=== PATIENT | male | born 1975 | race Caucasian/White ===

== ENCOUNTER 2016-07-18 12:10 | Emergency (ER) | payer MEDICAID, OTHER ==
[~2016-07-18] VITALS: Ht 188 cm; Wt 100.5 kg
[2016-07-18 12:16] VITALS: BP 146/91
[2016-07-18] MEDS ORDERED: CEFAZOLIN 1,000 MG IM ONE (12:30)
[2016-07-18] MEDS ORDERED: OXYcodone/APAP 5/325MG TABLET PO ONE (12:30)
[2016-07-18] MEDS ORDERED: DIPH,PERTUSS(ACELL),TET VAC/PF 0.5 ML IM-VACC ONE ×2 (12:30→13:51)
[2016-07-18] MEDS ORDERED: LIDOCAINE 1%-EPI 1:100K, 20ML SQ ONE (12:30)
[2016-07-18] MEDS ORDERED: LIDOCAINE 1%-EPI 1:100K, 20ML ONE (13:12)
[2016-07-18] MEDS ORDERED: LIDOCAINE 1%, 20ML ONE (13:51)
[2016-07-18] MEDS ORDERED: CEFAZOLIN 1,000 MG ONE (13:51)
[2016-07-18] MEDS ORDERED: OXYcodone/APAP 5/325MG TABLET ONE (13:51)
[2016-07-18] MEDS ORDERED: BACITRACIN ZINC OINT 500U/GM, 0.9 GM ONE (13:59)
== END 2016-07-18 14:24 | disposition home or self-care (01) ==
LOC: ED 13:06
DX: S81.012A Laceration without foreign body, left knee, initial encounter (principal); W23.0XXA Caught, crushed, jammed, or pinched between moving objects, initial encounter; Y93.89 Activity, other specified; Y92.099 Unspecified place in other non-institutional residence as the place of occurrence of the external cause; Y99.8 Other external cause status
CPT/HCPCS: 12002; 73564; 90471; 90715; 96372; 99284; J0690

== ENCOUNTER 2017-05-20 13:11 | Emergency (ER) | payer BC, MEDICAID ==
[~2017-05-20] VITALS: Ht 188 cm; Wt 100.6 kg
[2017-05-20 13:24] VITALS: BP 150/102
[2017-05-20] MEDS ORDERED: IBUPROFEN 200 MG TABLET ONE (13:53)
[2017-05-20] MEDS ORDERED: KETOROLAC 30 MG/1 ML IM ONE (14:00)
[2017-05-20] MEDS ORDERED: IBUPROFEN 200 MG TABLET PO ONE (14:30)
== END 2017-05-20 14:14 | disposition home or self-care (01) ==
LOC: ED 14:08
DX: G56.03 Carpal tunnel syndrome, bilateral upper limbs (principal)
CPT/HCPCS: 29260; 99283; J7512

== ENCOUNTER 2017-06-21 18:53 | Inpatient (IN) | payer BC ==
[~2017-06-21] VITALS: Ht 188 cm; Wt 87.1 kg
[2017-06-21] MEDS ORDERED: SODIUM CHLORIDE 0.9% 1,000ML IVBOLUS ONE ×2 (19:30→21:00)
[2017-06-21] MEDS ORDERED: FAMOTIDINE 20 MG/2 ML IVP ONE (19:30)
[2017-06-21] MEDS ORDERED: ONDANSETRON 2MG/ML, 2ML IVPush ONE (19:30)
[2017-06-21] MEDS ORDERED: SODIUM CHLORIDE FLUSH 10ML SYR IVF ONE (19:30)
[2017-06-21 19:39] LABS: MEAN CORPUSCULAR HEMOGLOBIN 30.1 pg (27.5-34.5); MEAN CORPUSCULAR HGB CONC 33.4 g/dL (33.2-36.2); MEAN PLATELET VOLUME 8.2 fL (7.4-10.4); PLATELET COUNT 258 x10^3/uL (130-400); RED BLOOD COUNT 5.18 x10^6/uL (4.38-5.82); RED CELL DISTRIBUTION WIDTH 13.3 % (9.4-14.8)
[2017-06-21 19:45] LABS: INTERNATIONAL NORMALIZED RATIO 1.02 (0.93-1.1); PROTHROMBIN TIME 10.6 Seconds (9.6-11.5)
[2017-06-21 19:48] LABS: ALBUMIN 3.8 g/dL (3.4-5.0); CALCIUM 9.1 mg/dL (8.5-10.1); CHLORIDE 102 mmol/L (98-107)
[2017-06-21 19:54] LABS: ALANINE AMINOTRANSFERASE 37 U/L (12-78); ALKALINE PHOSPHATASE 68 U/L (45-117); ANION GAP 5 mmol/L (5-15); BILIRUBIN,TOTAL 0.5 mg/dL (0.2-1.0); CREATININE 1.13 mg/dL (0.7-1.3); TOTAL PROTEIN 7.1 g/dL (6.4-8.2)
[2017-06-21 19:55] LABS: BASOPHILS # (AUTO) 0.03 x10^3/uL (0-0.1); BASOPHILS % (AUTO) 0 % (0-1); EOSINOPHILS # (AUTO) 0.11 x10^3/uL (0-0.4); EOSINOPHILS % (AUTO) 1 % (1-7); LYMPHOCYTES # (AUTO) 2.37 x10^3/uL (1-3.4); LYMPHOCYTES % (AUTO) 11 % (22-44); MD SCAN; MONOCYTES # (AUTO) 0.84 x10^3/uL (0.2-0.8); MONOCYTES % (AUTO) 4 % (2-9); NEUTROPHILS % (AUTO) 85 % (42-75)
[2017-06-21] MEDS ORDERED: LORazepam 2 MG/ML, 1ML IVPush STA ×2 (19:55→21:08)
[2017-06-21] MEDS ORDERED: LORazepam 2 MG/ML, 1ML ONE ×2 (20:02→21:09)
[2017-06-21] MEDS ORDERED: ONDANSETRON 2MG/ML, 2ML ONE (20:19)
[2017-06-21] MEDS ORDERED: FAMOTIDINE 20 MG/2 ML ONE (20:19)
[2017-06-21] MEDS ORDERED: OMNIPAQUE 350 MG/ML, 100ML BOTTLE ONE (20:28)
[2017-06-21] MEDS ORDERED: SODIUM CHLORIDE 0.9% 1,000 ML IV ONE (20:53)
[2017-06-21] MEDS ORDERED: CEFTRIAXONE PMX 1GM/50ML 50 ML ONE (21:00)
[2017-06-21] MEDS ORDERED: CEFTRIAXONE PMX 1GM/50ML 50 ML IVPB ONE (21:00)
[2017-06-21] MEDS ORDERED: METRONIDAZOLE PMX 500MG/100ML 100 ML ONE (21:00)
[2017-06-21] MEDS ORDERED: METRONIDAZOLE PMX 500MG/100ML 100 ML IVPB ONE (21:00)
[2017-06-21] MEDS ORDERED: QUET400T4 PO (21:22)
[2017-06-21] MEDS ORDERED: LORazepam 2 MG/ML, 1ML IVPush ONE (21:30)
[2017-06-21] MEDS ORDERED: OXYcodone IR 5MG TABLET PO PRN (22:00)
[2017-06-21] MEDS: QUETIAPINE 100MG TABLET PO SCH (22:00)
[2017-06-21] MEDS ORDERED: CEFTRIAXONE PMX 1GM/50ML 50 ML IV SCH (22:00)
[2017-06-21] MEDS ORDERED: morphine SULFATE 10 MG/ML, 1ML IVPush PRN (22:00)
[2017-06-21] MEDS ORDERED: ACETAMINOPHEN 325 MG TABLET PO PRN (22:00)
[2017-06-21] MEDS ORDERED: ENALAPRILAT 1.25 MG/ML, 2ML IVPush PRN (22:00)
[2017-06-21] MEDS ORDERED: hydrALAzine 20 MG/ML, 1ML IVPush PRN (22:00)
[2017-06-21] MEDS: METRONIDAZOLE PMX 500MG/100ML 100 ML IV SCH (22:11)
[2017-06-21 22:22] LABS: FREE T4 (FREE THYROXINE) 0.95 ng/dL (0.76-1.46); THYROID STIMULATING HORMONE 0.616 mIU/L (0.358-3.740)
[2017-06-22] MEDS: D5%-0.9% NACL+KCL 20MEQ 1,000 ML IV SCH ×3 (00:17→18:24)
[2017-06-22] MEDS: ALPRazolam 1MG TABLET PO PRN ×6 (00:18→23:30)
[2017-06-22] MEDS: DOCUSATE 100 MG CAPSULE PO PRN ×2 (05:07→22:31)
[2017-06-22] MEDS: POLYETHYLENE GLYCOL 17 GM PACKET PO PRN (05:08)
[2017-06-22 05:14] VITALS: BP 113/71
[2017-06-22] MEDS: METRONIDAZOLE PMX 500MG/100ML 100 ML IV SCH ×3 (05:53→22:31)
[2017-06-22 05:56] LABS: CALCIUM 7.8 mg/dL (8.5-10.1); CHLORIDE 108 mmol/L (98-107)
[2017-06-22 06:01] LABS: ALANINE AMINOTRANSFERASE 26 U/L (12-78); ALBUMIN 2.8 g/dL (3.4-5.0); ALKALINE PHOSPHATASE 54 U/L (45-117); ANION GAP 6 mmol/L (5-15); BILIRUBIN,TOTAL 0.3 mg/dL (0.2-1.0); CHOL/HDL RATIO 3.4; CHOLESTEROL, TOTAL 137 mg/dL (140-239); CREATININE 0.93 mg/dL (0.7-1.3); HDL CHOL % 29 % (26-37); HDL CHOLESTEROL (DIRECT) 40 mg/dL (40-60); LDL CHOLESTEROL,CALCULATED 78 mg/dL (54-169); TOTAL PROTEIN 5.4 g/dL (6.4-8.2); TRIGLYCERIDES 93 mg/dL (50-200); VLDL CHOLESTEROL 19 mg/dL (0-25)
[2017-06-22 06:19] LABS: BASOPHILS # (AUTO) 0.04 x10^3/uL (0-0.1); BASOPHILS % (AUTO) 0 % (0-1); EOSINOPHILS # (AUTO) 0.17 x10^3/uL (0-0.4); EOSINOPHILS % (AUTO) 1 % (1-7); LYMPHOCYTES # (AUTO) 3.73 x10^3/uL (1-3.4); LYMPHOCYTES % (AUTO) 25 % (22-44); MD NO; MEAN CORPUSCULAR HEMOGLOBIN 29.6 pg (27.5-34.5); MEAN CORPUSCULAR HGB CONC 33.1 g/dL (33.2-36.2); MEAN CORPUSCULAR VOLUME 89.4 fL (81-97); MEAN PLATELET VOLUME 8.7 fL (7.4-10.4); MONOCYTES # (AUTO) 1.21 x10^3/uL (0.2-0.8); MONOCYTES % (AUTO) 8 % (2-9); NEUTROPHILS # (AUTO) 9.82 x10^3/uL (1.8-6.8); NEUTROPHILS % (AUTO) 66 % (42-75); PLATELET COUNT 211 x10^3/uL (130-400); RED BLOOD COUNT 4.35 x10^6/uL (4.38-5.82)
[2017-06-22] MEDS ORDERED: ALPRazolam 1MG TABLET PO PRN (07:30)
[2017-06-22 09:05] LABS: HCT (SEDRATE) 38.9 % (39.2-51.8)
[2017-06-22 09:14] LABS: CLOSTRIDIUM DIFFICILE ANTIGEN NEGATIVE; CLOSTRIDIUM DIFFICILE TOXIN NEGATIVE (Negative)
[2017-06-22 09:20] VITALS: BP 141/75
[2017-06-22 11:07] LABS: MICROSCOPIC NOT IND
[2017-06-22 11:10] LABS: CULTURE INDICATED? NO
[2017-06-22 12:00] VITALS: BP 103/67
[2017-06-22 17:01] VITALS: BP 108/69
[2017-06-22 20:09] VITALS: BP 132/69
[2017-06-22] MEDS ORDERED: CEFTRIAXONE 1,000 MG in DEXTROSE 5% 50 ML IV SCH (22:00)
[2017-06-22] MEDS: QUETIAPINE 100MG TABLET PO SCH (22:32)
[2017-06-23 00:44] VITALS: BP 101/63
[2017-06-23] MEDS: ALPRazolam 1MG TABLET PO PRN ×4 (03:29→16:02)
[2017-06-23] MEDS: POLYETHYLENE GLYCOL 17 GM PACKET PO PRN (05:48)
[2017-06-23] MEDS: METRONIDAZOLE PMX 500MG/100ML 100 ML IV SCH ×2 (05:49→14:10)
[2017-06-23 06:13] LABS: ANION GAP 7 mmol/L (5-15); CALCIUM 7.9 mg/dL (8.5-10.1); CHLORIDE 108 mmol/L (98-107)
[2017-06-23 06:15] LABS: BASOPHILS # (AUTO) 0.02 x10^3/uL (0-0.1); BASOPHILS % (AUTO) 0 % (0-1); CREATININE 0.89 mg/dL (0.7-1.3); EOSINOPHILS # (AUTO) 0.15 x10^3/uL (0-0.4); EOSINOPHILS % (AUTO) 1 % (1-7); LYMPHOCYTES # (AUTO) 3.17 x10^3/uL (1-3.4); LYMPHOCYTES % (AUTO) 27 % (22-44); MD NO; MEAN CORPUSCULAR HEMOGLOBIN 30.5 pg (27.5-34.5); MEAN CORPUSCULAR HGB CONC 33.9 g/dL (33.2-36.2); MEAN CORPUSCULAR VOLUME 89.9 fL (81-97); MEAN PLATELET VOLUME 8.4 fL (7.4-10.4); MONOCYTES # (AUTO) 0.87 x10^3/uL (0.2-0.8); MONOCYTES % (AUTO) 7 % (2-9); NEUTROPHILS # (AUTO) 7.78 x10^3/uL (1.8-6.8); NEUTROPHILS % (AUTO) 65 % (42-75); PLATELET COUNT 208 x10^3/uL (130-400); RED BLOOD COUNT 4.18 x10^6/uL (4.38-5.82); RED CELL DISTRIBUTION WIDTH 13.1 % (9.4-14.8)
[2017-06-23 09:44] VITALS: BP 107/68
[2017-06-23 16:04] VITALS: BP 96/59
[2017-06-23] MEDS ORDERED: POLY17PO5 PO (16:41)
[2017-06-23] MEDS ORDERED: METR500T8 PO (16:41)
[2017-06-23] MEDS ORDERED: DOCU-131 PO (16:41)
[2017-06-23] MEDS ORDERED: ACET325T14 PO (16:41)
[2017-06-23] MEDS ORDERED: CIPR500T3 PO (16:41)
[2017-06-23] MEDS ORDERED: LACT1CAP24 PO (16:42)
== END 2017-06-23 17:40 | disposition home or self-care (01) | DRG 872 ==
LOC: ED 20:58 → EDIP 21:00 → 4NOR 22:33
PROVIDERS: ADMIT Internal Medicine; ATTEND Internal Medicine
DX: A41.9 Sepsis, unspecified organism (principal); A09 Infectious gastroenteritis and colitis, unspecified; E86.0 Dehydration; F12.10 Cannabis abuse, uncomplicated; F17.210 Nicotine dependence, cigarettes, uncomplicated; K59.00 Constipation, unspecified; G56.00 Carpal tunnel syndrome, unspecified upper limb
CPT/HCPCS: 36415; 74177; 80048; 80053; 80061; 81003; 83036; 83605; 83690; 83735; 84100; 84439; 84443; 85014; 85018; 85025; 85610; 85651; 85730; 86140; 86850; 86900; 87040; 87046; 87324; 87427; 89055; 96361; 96365; 96368; 96375; 96376; J0696; J2405; Q9967; J2060; J3480; J7030; S0028

== ENCOUNTER 2018-12-06 10:18 | Emergency (ER) | payer BC, MEDICAID ==
[~2018-12-06] VITALS: Ht 185.4 cm; Wt 94.2 kg
[~2018-12-06 10:18] MED LIST: ACET325T14 PO; CIPR500T3 PO; DOCU-131 PO; LACT1CAP24 PO; METR-90 PO; POLY17PO5 PO; QUET400T4 PO
[2018-12-06 10:27] VITALS: BP 117/92
--- NOTE | 2018-12-06 10:58 | NUR ---
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
--- NOTE | 2018-12-06 11:20 | NUR ---
PT WITH C/O ABD PAIN, EPIGASTRIC DESCRIBED BY PATIENT. PT WITH HX OF DIVERTICULITIS/COLITITS.
[2018-12-06] MEDS ORDERED: SODIUM CHLORIDE FLUSH 10ML SYR IVF ONE (11:30)
[2018-12-06] MEDS ORDERED: MAALOX/HYOSCYAMINE/LIDOCAINE 45 ML BTL PO ONE (11:30)
[2018-12-06] MEDS ORDERED: FAMOTIDINE 20 MG/2 ML IVPush ONE (11:30)
[2018-12-06] MEDS ORDERED: SODIUM CHLORIDE 0.9% 1,000ML IVBOLUS ONE (11:30)
[2018-12-06] MEDS ORDERED: HYDROmorphone 2 MG/ML, 1ML IVPush PRN (11:30)
[2018-12-06] MEDS ORDERED: ONDANSETRON 2MG/ML, 2ML IVPush ONE (11:30)
--- NOTE | 2018-12-06 11:41 | NUR ---
PIV INITIATED, LABS DRAWN AND SENT. PT MEDICATED PER MAR
[2018-12-06 11:54] LABS: CHLORIDE 106 mmol/L (98-107)
[2018-12-06 11:59] LABS: BASOPHILS # (AUTO) 0.02 x10^3/uL (0-0.1); BASOPHILS % (AUTO) 0 % (0-1); EOSINOPHILS # (AUTO) 0.06 x10^3/uL (0-0.4); EOSINOPHILS % (AUTO) 1 % (1-7); LYMPHOCYTES # (AUTO) 2.51 x10^3/uL (1-3.4); LYMPHOCYTES % (AUTO) 31 % (22-44); MD NO; MEAN CORPUSCULAR HEMOGLOBIN 30.8 pg (27.5-34.5); MEAN CORPUSCULAR HGB CONC 34.8 g/dL (33.2-36.2); MEAN CORPUSCULAR VOLUME 88.8 fL (81-97); MEAN PLATELET VOLUME 8.4 fL (7.4-10.4); MONOCYTES # (AUTO) 0.61 x10^3/uL (0.2-0.8); MONOCYTES % (AUTO) 7 % (2-9); NEUTROPHILS # (AUTO) 5.05 x10^3/uL (1.8-6.8); NEUTROPHILS % (AUTO) 61 % (42-75); PLATELET COUNT 238 x10^3/uL (130-400); RED BLOOD COUNT 5.77 x10^6/uL (4.38-5.82); RED CELL DISTRIBUTION WIDTH 13.7 % (9.4-14.8)
[2018-12-06 12:00] LABS: ALANINE AMINOTRANSFERASE 35 U/L (12-78); ALBUMIN 4.4 g/dL (3.4-5.0); ALKALINE PHOSPHATASE 77 U/L (45-117); ANION GAP 5 mmol/L (5-15); BILIRUBIN,TOTAL 0.4 mg/dL (0.2-1.0); CREATININE 0.96 mg/dL (0.7-1.3); TOTAL PROTEIN 7.7 g/dL (6.4-8.2)
--- NOTE | 2018-12-06 12:28 | NUR ---
PT TO CT
[2018-12-06] MEDS ORDERED: OMNIPAQUE 350 MG/ML, 100ML BOTTLE ONE (12:42)
--- NOTE | 2018-12-06 13:20 | NUR ---
ERMD IN TO UPDATE PT, PT TO D/C HOME
--- NOTE | 2018-12-06 13:45 | NUR ---
Patient/Caregiver given discharge instructions and they have confirmed that they understand the instructions. Patient ambulatory with steady gait.
[2018-12-11] MEDS ORDERED: AMIT50TA PO (09:40)
[2018-12-11] MEDS ORDERED: SUCR1TAB PO (09:40)
[2018-12-11] MEDS ORDERED: OMEP20TA62 PO (09:40)
== END 2018-12-06 14:24 | disposition home or self-care (01) ==
LOC: ED 12:07
DX: K29.00 Acute gastritis without bleeding (principal); R10.84 Generalized abdominal pain
CPT/HCPCS: 36415; 74177; 80053; 83605; 83690; 85025; 96361; 96374; 96375; 99284; J1170; J2405; J3490; J7030; Q9967

== ENCOUNTER 2019-05-20 10:46 | Emergency (ER) | payer MEDICAID ==
[~2019-05-20] VITALS: Ht 185.4 cm; Wt 100.5 kg
[~2019-05-20 10:46] MED LIST changes: +AMIT50TA PO; +OMEP20TA62 PO; +SUCR1TAB PO
--- NOTE | 2019-05-20 11:36 | NUR ---
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
[2019-05-20 11:43] LABS: BASOPHILS # (AUTO) 0.04 x10^3/uL (0-0.1); BASOPHILS % (AUTO) 1 % (0-1); EOSINOPHILS # (AUTO) 0.07 x10^3/uL (0-0.4); EOSINOPHILS % (AUTO) 1 % (1-7); LYMPHOCYTES # (AUTO) 2.86 x10^3/uL (1-3.4); LYMPHOCYTES % (AUTO) 36 % (22-44); MD NO; MEAN CORPUSCULAR HEMOGLOBIN 29.7 pg (27.5-34.5); MEAN CORPUSCULAR HGB CONC 33.5 g/dL (33.2-36.2); MEAN CORPUSCULAR VOLUME 88.7 fL (81-97); MEAN PLATELET VOLUME 8.2 fL (7.4-10.4); MONOCYTES # (AUTO) 0.67 x10^3/uL (0.2-0.8); MONOCYTES % (AUTO) 9 % (2-9); NEUTROPHILS # (AUTO) 4.26 x10^3/uL (1.8-6.8); NEUTROPHILS % (AUTO) 54 % (42-75); PLATELET COUNT 226 x10^3/uL (130-400); RED BLOOD COUNT 5.44 x10^6/uL (4.38-5.82); RED CELL DISTRIBUTION WIDTH 13.4 % (9.4-14.8)
[2019-05-20 11:54] LABS: ALBUMIN 4.2 g/dL (3.4-5.0); ANION GAP 5 mmol/L (5-15); CALCIUM 8.8 mg/dL (8.5-10.1); CHLORIDE 104 mmol/L (98-107); CREATININE 1.14 mg/dL (0.7-1.3)
--- NOTE | 2019-05-20 11:59 | NUR ---
BREAK RN: PT CHANGED INTO GOWN, UPRIGHT ON GURNEY AWAKE & CALM, RESPONDS APPROP TO STAFF, COMFORT MEASURES PROVIDED, MOM AT BS, CALL LIGHT WITHIN REACH.
[2019-05-20] MEDS ORDERED: SODIUM CHLORIDE 0.9% 1,000 ML IV ONE (12:15)
[2019-05-20] MEDS ORDERED: HYDROmorphone 1 MG/ML, 1ML INJ ONE ×2 (12:29→13:49)
[2019-05-20] MEDS ORDERED: ONDANSETRON 2MG/ML, 2ML ONE (12:30)
[2019-05-20] MEDS ORDERED: ONDANSETRON 2MG/ML, 2ML IVPush ONE (12:30)
[2019-05-20] MEDS ORDERED: SODIUM CHLORIDE FLUSH 10ML SYR IVF ONE (12:30)
[2019-05-20] MEDS ORDERED: SODIUM CHLORIDE 0.9% 1,000ML IVBOLUS ONE (12:30)
[2019-05-20] MEDS: HYDROmorphone 2 MG/ML, 1ML IVPush PRN ×2 (12:41→13:52)
--- NOTE | 2019-05-20 12:47 | NUR ---
pt medicated per emar. pt tolerated well. ns infusing at this time.
--- NOTE | 2019-05-20 12:53 | NUR ---
ua sent at this time.
--- NOTE | 2019-05-20 13:08 | NUR ---
pt in ct at this time.
[2019-05-20 13:10] LABS: MICROSCOPIC NOT IND
[2019-05-20 13:15] LABS: CULTURE INDICATED? NO
[2019-05-20] MEDS ORDERED: OMNIPAQUE 350 MG/ML, 100ML BOTTLE ONE (13:15)
[2019-05-20 13:52] VITALS: BP 123/88
--- NOTE | 2019-05-20 13:55 | NUR ---
pt medicated per emar for pain per pt's request. pt tolerated well.
--- NOTE | 2019-05-20 14:31 | NUR ---
Patient given discharge instructions and they have confirmed that they understand the instructions. Patient ambulatory with steady gait.
== END 2019-05-20 14:31 | disposition home or self-care (01) ==
LOC: ED 14:21
DX: K52.9 Noninfective gastroenteritis and colitis, unspecified (principal); R11.2 Nausea with vomiting, unspecified
CPT/HCPCS: 36415; 74177; 80048; 81003; 82040; 85025; 96361; 96374; 96375; 96376; 99285; J1170; J2405; J7030; Q9967

== ENCOUNTER 2019-12-28 11:43 | Emergency (ER) | payer MEDICAID ==
[~2019-12-28] VITALS: Ht 188 cm; Wt 102.0 kg
[2019-12-28] MEDS ORDERED: FAMOTIDINE 20 MG/2 ML ONE (12:14)
[2019-12-28] MEDS ORDERED: ONDANSETRON 2MG/ML, 2ML ONE (12:14)
[2019-12-28] MEDS ORDERED: HYDROmorphone 2 MG/ML, 1ML ONE (12:14)
[2019-12-28] MEDS ORDERED: HYDROmorphone 2 MG/ML, 1ML IVPush PRN (12:30)
[2019-12-28] MEDS ORDERED: SODIUM CHLORIDE 0.9% 1,000ML IVBOLUS ONE (12:30)
[2019-12-28] MEDS ORDERED: ONDANSETRON 2MG/ML, 2ML IVPush ONE (12:30)
[2019-12-28] MEDS ORDERED: FAMOTIDINE 20 MG/2 ML IV ONE (12:30)
[2019-12-28 12:32] LABS: BASOPHILS # (AUTO) 0.08 x10^3/uL (0-0.1); BASOPHILS % (AUTO) 1 % (0-1); EOSINOPHILS # (AUTO) 0.11 x10^3/uL (0-0.4); EOSINOPHILS % (AUTO) 1 % (1-7); LYMPHOCYTES # (AUTO) 3.34 x10^3/uL (1-3.4); LYMPHOCYTES % (AUTO) 31 % (22-44); MD NO; MEAN CORPUSCULAR HEMOGLOBIN 29.4 pg (27.5-34.5); MEAN CORPUSCULAR HGB CONC 33.1 g/dL (33.2-36.2); MEAN CORPUSCULAR VOLUME 88.6 fL (81-97); MEAN PLATELET VOLUME 8.1 fL (7.4-10.4); MONOCYTES # (AUTO) 0.74 x10^3/uL (0.2-0.8); MONOCYTES % (AUTO) 7 % (2-9); NEUTROPHILS # (AUTO) 6.38 x10^3/uL (1.8-6.8); NEUTROPHILS % (AUTO) 60 % (42-75); PLATELET COUNT 261 x10^3/uL (130-400); RED BLOOD COUNT 5.46 x10^6/uL (4.38-5.82); RED CELL DISTRIBUTION WIDTH 13.3 % (9.4-14.8)
[2019-12-28 12:36] LABS: ALANINE AMINOTRANSFERASE 26 U/L (12-78); ALBUMIN 4.1 g/dL (3.4-5.0); ANION GAP 7 mmol/L (5-15); CALCIUM 9.2 mg/dL (8.5-10.1); CHLORIDE 104 mmol/L (98-107); CREATININE 0.93 mg/dL (0.7-1.3)
[2019-12-28 12:41] LABS: ALKALINE PHOSPHATASE 85 U/L (45-117); BILIRUBIN,TOTAL 0.3 mg/dL (0.2-1.0); TOTAL PROTEIN 7.3 g/dL (6.4-8.2)
[2019-12-28] MEDS ORDERED: CEFTRIAXONE PMX 1GM/50ML 50 ML IV ONE (13:00)
[2019-12-28] MEDS ORDERED: HYDROcodone/APAP 5/325 TABLET PO ONE (13:00)
[2019-12-28] MEDS ORDERED: METRONIDAZOLE PMX 500MG/100ML 100 ML IV ONE (13:00)
[2019-12-28 13:08] LABS: MICROSCOPIC NOT IND
[2019-12-28] MEDS ORDERED: HYDROcodone/APAP 5/325 TABLET ONE (13:14)
[2019-12-28] MEDS ORDERED: CEFTRIAXONE PMX 1GM/50ML 50 ML ONE (13:14)
[2019-12-28] MEDS ORDERED: METRONIDAZOLE PMX 500MG/100ML 100 ML ONE (13:14)
--- NOTE | 2019-12-28 13:25 | NUR ---
PT MEDICATED PER PLAN FOR DC P ABX ADMIN. VSS, NAD NOTED. Addendum: 12/28/19 at 1329 by AMCABNERB BC NOT NECESSARY, CLARIFIED WITH ERMD
[2019-12-28 14:27] VITALS: BP 119/89
--- NOTE | 2019-12-28 14:28 | NUR ---
break RN note: report taken from JASMEET Orr, this RN entered room to initiate flagyl infusion, pt refuses flagyl stating he has a family emergency and must leave immediately. AMY West notified. PIV dc'd with tip intact. pt given dc instructions and script, educated regarding dc rx. pt educated not to drive d/t meds given, pt states friend is driving home. pt a&o, resps even and unlabored, ambulatory to dc desk with steady gait.
== END 2019-12-28 14:29 | disposition home or self-care (01) ==
LOC: ED 12:24
DX: R10.32 Left lower quadrant pain (principal); R11.2 Nausea with vomiting, unspecified
CPT/HCPCS: 36415; 80053; 81003; 83690; 85025; 96365; 96375; 99284; J0696; J1170; J2405; J3490; J7030